=== PATIENT | female | born 1985 | race Caucasian/White ===

== ENCOUNTER 2016-09-22 20:25 | Emergency (ER) | payer BC, OTHER ==
[2016-09-22] MEDS ORDERED: Adacel Vial IM ONE ×2 (20:36→20:53)
[2016-09-22] MEDS ORDERED: XYLOCAINE 1% HCL 20 ML MDV IJ ONE (20:36)
[2016-09-22] MEDS ORDERED: BACIGUENT PACKET TP ONE (20:36)
[2016-09-22] MEDS ORDERED: XYLOCAINE 1% HCL 20 ML MDV ONE ×2 (20:42→20:53)
--- NOTE | 2016-09-22 20:42 | ERPHSYRPT ---
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 Triage Nursing Assessment: Pt alert, oriented x 4, skin p/w/d, resps non- labored. Pt with cut on rt middle fingertip. Pt ambulatory, steady gait noted. No active bleeding noted. Physician History: ABOUT 15 MINUTES AGO PT WAS USING A VEGETABLE SLICER AT HOME SLICING POTATOES AND CUT THE TIP OF HER RIGHT MIDDLE FINGER; DENIES PRIOR INJURY TO THE RIGHT MIDDLE FINGER. PT CAN FEEL THE TIP OF THE RIGHT MIDDLE FINGER. LAST TETANUS IS OVER 5 YEARS AGO. Allergies/Adverse Reactions: No Known Drug Allergies Allergy (Unverified 09/22/16 20:37) Home Medications: Topiramate 25 mg [Topamax 25 MG] 25 mg PO DAILY 09/22/16 [History] Hx Tetanus, Diphtheria Vaccination/Date Given: No - Review of Systems Skin: Other (CUT TO RIGHT MIDDLE FINGER TODAY) - Past Medical History Other Medical History: pseudotumor cerebrii - Past Surgical History Female Surgical History: Hysterectomy, Tubal Ligation Other Surgical History: ablation, kidney stent - Social History Smoking Status: Never smoker Exposure to second hand smoke: No Drug Use: none Patient Lives Alone: No - Female History Hx Last Menstrual Period: hyst - Nursing Vital Signs Nursing Vital Signs: Initial Vital Signs Temperature 98.8 F Temperature Source Oral Pulse Rate 76 Respiratory Rate 16 Blood Pressure [Left Arm] 130/83 Pain Intensity 1 - Physical Exam General Appearance: alert Shoulder Exam: normal ROM Elbow/Forearm Exam: normal ROM Wrist Exam: normal ROM Hand Exam: normal ROM Neuro/Tendon Exam: normal sensation, normal motor functions, normal tendon functions Mental Status Exam: alert, cooperative Skin Exam: other (EPIDERMAL AND PARTIAL DERMAL AVULSION TO THE TIP OF THE RIGHT MIDDLE FINGER ~ 1 CM X 1/2 CM.) SpO2 Interpretation: normal SpO2: 97 Oxygen Delivery: Room Air - Course Nursing assessment & vital signs reviewed: Yes Ordered Tests: Active Orders 24 hr Category Date Time Status Prepare for Sutures STAT Care 09/22/16 20:36 Active Sutures STAT Care 09/22/16 20:37 Active Wound Care STAT Care 09/22/16 20:36 Active Medication Summary Discontinued Medications Generic Name Dose Route Start Last Admin Trade Name Alejandro PRN Reason Stop Dose Admin Bacitracin 0.9 gm 09/22/16 20:36 09/22/16 20:55 Baciguent Packet TP 09/22/16 20:37 1 gm STAT ONE Administration Bacitracin Confirm 09/22/16 20:53 Baciguent Packet Administered 09/22/16 20:54 Dose 1 gm .ROUTE .STK-MED ONE Diphtheria/Tetanus/Acell Pertussis 0.5 ml 09/22/16 20:36 09/22/16 20:54 Adacel Vial IM 09/22/16 20:37 0.5 ml .ONCE ONE Administration Diphtheria/Tetanus/Acell Pertussis Confirm 09/22/16 20:53 Adacel Vial Administered 09/22/16 20:54 Dose 0.5 ml IM .STK-MED ONE Lidocaine HCl 5 ml 09/22/16 20:36 09/22/16 20:54 Xylocaine 1% Hcl 20 Ml Mdv IJ 09/22/16 20:37 5 ml STAT ONE Administration Lidocaine HCl Confirm 09/22/16 20:42 Xylocaine 1% Hcl 20 Ml Mdv Administered 09/22/16 20:43 Dose 1 ml .ROUTE .STK-MED ONE Lidocaine HCl Confirm 09/22/16 20:53 Xylocaine 1% Hcl 20 Ml Mdv Administered 09/22/16 20:54 Dose 5 ml .ROUTE .STK-MED ONE - Departure Time of Disposition: 21:17 Departure Disposition: Home Clinical Impression: PARTIAL AVULSION OF RIGHT MIDDLE FINGER TIP Condition: Stable Critical Care Time: No Instructions: Care for a Surgical Wound Additional Instructions: FOLLOW UP WITH PRIVATE DOCTOR TOMORROW. KEEP CLEAN & DRY. NEOSPORIN & BANDAGE DAILY FOR 14 DAYS. Prescriptions: Cephalexin Monohydrate [Keflex] 500 mg PO TID #21 capsule
[2016-09-22] MEDS ORDERED: BACIGUENT PACKET ONE (20:53)
[2016-09-22] MEDS ORDERED: KEFLEX 500 MG PO ONE (21:17)
[2016-09-22] MEDS ORDERED: KEFLEX 500 MG ONE (21:20)
[2016-09-22 21:31] VITALS: BP 119/67; PULSE 73; O2SAT 100
== END 2016-09-22 21:31 | disposition home or self-care (01) ==
LOC: ED 20:25
DX: S61.212A Laceration without foreign body of right middle finger without damage to nail, initial encounter (principal); W27.4XXA Contact with kitchen utensil, initial encounter; Y93.G1 Activity, food preparation and clean up
CPT/HCPCS: 90471; 90715; 99284; A9270-GY